=== PATIENT | female | born 1990 | race Caucasian/White ===

== ENCOUNTER 2018-11-17 11:00 | Observation (INO) | payer OTHER ==
[~2018-11-17] VITALS: Ht 160 cm; Wt 55.7 kg
[2018-11-17] MEDS ORDERED: ZOFR4TAB16 PO (11:12)
[2018-11-17] MEDS ORDERED: PRENCHW PO (11:12)
[2018-11-17] MEDS ORDERED: NS 1,000 ML IV ONE (11:15)
[2018-11-17 11:24] LABS: BASO % 0.4 % (0.0-1.0); EOS # 0.1 10^3/uL (0.0-0.50); EOS % 1.1 % (0.0-3.0); HEMOGLOBIN 13.5 g/dl (12.0-15.5); LYMPH # 2.3 10^3/uL (1.5-6.5); LYMPH % 23.8 % (24.0-44.0); MEAN CORPUSCULAR HEMOGLOBIN 31.5 pg (27.0-33.0); MEAN CORPUSCULAR HGB CONC 36.5 g/dl (32.0-36.5); MEAN CORPUSCULAR VOLUME 86.2 fl (80.0-96.0); MONO # 0.4 10^3/uL (0.0-0.8); MONO % 4.3 % (0.0-5.0); NEUTROPHILS # 6.8 10^3/uL (1.8-7.7); PLATELET COUNT, AUTOMATED 291 10^3/uL (150-450); RED BLOOD COUNT 4.29 10^6/uL (4.00-5.40); WHITE BLOOD COUNT 9.7 10^3/uL (4.0-10.0)
--- NOTE | 2018-11-17 11:48 | REP ---
Chest one-view HISTORY: Tachycardia Comparison: None The lungs are clear. The heart is normal in size. The pulmonary vasculature is normal in appearance. Impression: No acute disease. Electronically Signed by Parker Leonard MD 11/17/2018 11:40 A
[2018-11-17 12:05] LABS: ALBUMIN 3.8 GM/DL (3.2-5.2); ALT/SGPT 28 U/L (12-78); BILIRUBIN,DIRECT < 0.1 MG/DL (0.0-0.2); BILIRUBIN,TOTAL 0.3 MG/DL (0.2-1.0); BLOOD UREA NITROGEN 12 MG/DL (7-18); CALCIUM LEVEL 9.1 MG/DL (8.5-10.1); CARBON DIOXIDE LEVEL 22 MEQ/L (21-32); CHLORIDE LEVEL 104 MEQ/L (98-107); CPK CREATINE PHOSPHOKINASE 121 U/L (26-192); CREATININE FOR GFR 0.78 MG/DL (0.55-1.30); GLOMERULAR FILTRATION RATE > 60.0 (>60); GLUCOSE, FASTING 91 MG/DL (70-100); MB/CK RELATIVE INDEX 1.16 (< OR =4); POTASSIUM SERUM 3.3 MEQ/L (3.5-5.1); SODIUM LEVEL 136 MEQ/L (136-145); TROPONIN I < 0.02 NG/ML (< 0.10)
[2018-11-17] MEDS ORDERED: ONDA4TAB6 PO (12:41)
[2018-11-17] MEDS ORDERED: ONDANSETRON 4 MG ORAL DISINTEGRATING TAB (Q0162 PER 1MG) PO PRN (14:00)
[2018-11-17] MEDS ORDERED: POTASSIUM CHLORIDE 10% LIQ 20 MEQ/15 ML UDC PO ONE (14:00)
--- NOTE | 2018-11-17 14:31 | HPE ---
DATE OF ADMISSION: 11/17/2018 This is a 28-year-old female with a past medical history of a pulmonic heart murmur who presents to the emergency room with heart palpitations. She says she had heart palpitations yesterday when she was at the gym and she gave herself a vagal maneuver and her heart rate came down with that maneuver and she went about her day. 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 The patient's 12 lead EKG showed what appeared to be sinus tachycardia at approximately 120 beats per minute. On the tele strips it went as high as 160 but no medical intervention was necessary. 12 lead EKG showed a right bundle branch block, otherwise no acute STT abnormalities and her first troponin was negative. She does have a family history of heart arrhythmias from her father, however this late onset in life and he has paroxysmal atrial fibrillation. No history of early supraventricular arrhythmias. At this time, she is chest pain free. She has no palpitations or shortness of breath. She will be admitted for further management. PAST MEDICAL HISTORY: Pulmonic murmur at age 7. ALLERGIES: No known drug allergies. FAMILY HISTORY: Negative for early supraventricular arrhythmias. SOCIAL HISTORY: Patient denies tobacco, alcohol or illicit drugs. HOME MEDICATIONS: Are as follows: - multivitamin one tablet orally daily - odansetron 40 mg orally every 8 hours as needed REVIEW OF SYSTEMS: Negative in all 10 major systems except what is mentioned in the history of present illness. VITALS: Blood pressure is 157/70, heart rate is 108 and regular, respiratory rate is 18, temperature 99, oxygen saturation is 100% on room air. Head is atraumatic, normocephalic. Neck supple, no jugular venous distention (JVD). Lungs are clear to auscultation. S1 and S2 audible. There is a diastolic murmur appreciated in the left upper sternal border. Abdomen soft, positive bowel sonds. No pedal edema. Skin is intact. Neurologic exam: Patient awake, alert and oriented times three. LABS: Sodium 136, potassium 3.3, chloride 104, CO2 22, anion gap 10, BUN 12, creatinine 0.78, troponin is less than 0.02, TSH 1.66. WBC 9.7, hemoglobin 13.5, hematocrit 37, platelets 291,000. IMPRESSION: 1. Arrhythmia with sinus tachycardia. PLAN: Patient is to be admitted to the PCU. Will get a second troponin to rule out acute coronary syndrome, which I highly doubt is the case. We are going to get an echocardiogram to evaluate this murmur. No need for any antiarrhythmics at this time or rate reducing medications. Will ask Dr. Santos, our fell cutter, to be on consult and will be looking forward to his recommendations. In the ER, heart rate evaluated and found to be normal. The patient is 13 weeks at this time. KEAGAN
[2018-11-17 15:38] LABS: MAGNESIUM LEVEL 2.2 MG/DL (1.8-2.4)
[2018-11-17 17:00] VITALS: BP 129/65
--- NOTE | 2018-11-17 17:24 | ECHO ---
DATE OF PROCEDURE: 11/17/2018 REFERRING PHYSICIAN: Dr. Niko Somers INDICATION: Heart murmur. HEIGHT: 63 inches WEIGHT: 56 kilograms 2D MEASUREMENTS: Aortic annulus: 2.1 cm Left atrium: 2.5 cm Ventricular septum: 0.83 cm Posterior wall: 0.87 cm Left ventricle diastole: 4.1 cm Aortic root: 2.8 cm Left atrial volume index: 23 Inferior vena cava: 1.7 cm with much greater than 50% respiratory variation. Central venous pressure estimated to be approximately 5 mmHg at the time of the study. DOPPLER MEASUREMENTS: Aortic valve velocity: 113 cm/s LVOT velocity: 98.3 cm/s LVOT VTI: 17.0 cm Mitral E velocity: 87.7 cm/s Mitral A velocity: 43.8 cm/s Mitral deceleration time: 190 milliseconds Pulmonary artery systolic pressure estimated to be 17 mmHg. MITRAL ANNULAR TISSUE DOPPLER: E prime septal: 14.7 cm/s E prime lateral: 18.6 cm/s DESCRIPTION: Rhythm ranged from sinus rhythm to mild sinus tachycardia. Image quality was good. This was a 2D, M-mode, color flow Doppler and pulse wave Doppler examination and included mitral annular tissue Doppler. CONCLUSIONS: 1. Normal left ventricle internal dimensions and wall thickness. Normal regional left ventricular (LV) wall motion and wall thickening. Normal LV systolic function. Left ventricular ejection fraction (LVEF) 72% (3D). Supernormal LV diastolic function. 2. Normal echocardiogram Doppler. 3. Central venous pressure estimated to be 5 mmHg at the time of the study. 4. No pericardial effusion.
[2018-11-17] MEDS: NS 1,000 ML IV SCH (18:15)
[2018-11-17 20:00] VITALS: BP 139/67
[2018-11-17] MEDS: PRENATAL VITAMINS CHEWABLE TABLET PO SCH (20:06)
[2018-11-18] VITALS: BP 126/66
[2018-11-18] MEDS: NS 1,000 ML IV SCH (01:30)
[2018-11-18 04:00] VITALS: BP 129/65
[2018-11-18 06:21] LABS: BLOOD UREA NITROGEN 5 MG/DL (7-18); CALCIUM LEVEL 8.7 MG/DL (8.5-10.1); CARBON DIOXIDE LEVEL 22 MEQ/L (21-32); CHLORIDE LEVEL 109 MEQ/L (98-107); CREATININE FOR GFR 0.58 MG/DL (0.55-1.30); GLOMERULAR FILTRATION RATE > 60.0 (>60); GLUCOSE, FASTING 70 MG/DL (70-100); POTASSIUM SERUM 3.8 MEQ/L (3.5-5.1); SODIUM LEVEL 137 MEQ/L (136-145)
[2018-11-18 08:00] VITALS: BP 138/68
[2018-11-18] MEDS: PRENATAL VITAMINS CHEWABLE TABLET PO SCH (09:52)
--- NOTE | 2018-11-18 17:46 | IPNPDOC ---
Text Note Date of Service The patient was seen on 11/18/18. NOTE SUBJECTIVE: No complaints overnight . had an episode of morning sickness. now feeling better wants to go home,Echo normal. PHYSICAL EXAM: VITALS: As below GENERAL: Patient awake alert oriented x 3 lying comfortably in bed in no acute distress. Neck supple, no jugular venous distention (JVD). Lungs are clear to auscultation. CVS: S1 and S2 audible. There is a diastolic murmur appreciated in the left upper sternal border. Abdomen soft, positive bowel sonds. No pedal edema. Skin is intact. Neurologic exam: Patient awake, alert and oriented times three. LABS And Radiology : Reviewed. ASSESSMENT AND PLAN: This is a 28-year-old female with a past medical history of a pulmonic heart murmur who presents to the emergency room with heart palpitations. She says she had heart palpitations yesterday when she was at the gym and she gave herself a vagal maneuver and her heart rate came down with that maneuver and she went about her day. 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 The patient's 12 lead EKG showed what appeared to be sinus tachycardia at approximately 120 beats per minute. On the tele strips it went as high as 160 but no medical intervention was necessary. 12 lead EKG showed a right bundle branch block, otherwise no acute STT abnormalities and her first troponin was negative. She does have a family history of heart arrhythmias from her father, however this late onset in life and he has paroxysmal atrial fibrillation. No history of early supraventricular arrhythmias. She was admitted for obs and to rule out any other cardiac arrhythmia. Sinus tachycardia most probably due to dehydration echo was normal except for low estimated central venous pressure. resolved after IVf. 2 sets of troponin are negative. telemetry no arrhythmia. In the ER, heart rate evaluated and found to be normal. The patient is 13 weeks at this time Disposition: Discharge Home. VS,Roselyn, I+O VS, Ankitbone, I+O Laboratory Tests 11/17/18 11:19 Red Blood Count 4.29, Mean Corpuscular Volume 86.2, Mean Corpuscular Hemoglobin 31.5, Mean Corpuscular Hemoglobin Concent 36.5, Red Cell Distribution Width 12.8, Neutrophils (%) (Auto) 70.0 H, Lymphocytes (%) (Auto) 23.8 L, Monocytes (%) (Auto) 4.3, Eosinophils (%) (Auto) 1.1, Basophils (%) (Auto) 0.4, Neutrophils # (Auto) 6.8, Lymphocytes # (Auto) 2.3, Monocytes # (Auto) 0.4, Eosinophils # (Auto) 0.1, Basophils # (Auto) 0.0 11/18/18 04:40 Calcium Level 8.7 Vital Signs Date Time Temp Pulse Resp B/P (MAP) Pulse Ox O2 Delivery O2 Flow Rate FiO2 11/18/18 00:00 98.3 82 16 126/66 (86) 98 Room Air I&O- Last 24 Hours up to 6 AM 11/18/18 06:00 Intake Total 1000 ml Output Total 500 ml Balance 500 ml CRISTIANO PEGUERO MD Nov 18, 2018 08:01
--- NOTE | 2018-11-19 06:40 | ECGEPIP ---
Stationary ECG Study [facility] - ED Test Date: 2018-11-17 Pat Name: SHANA MEJIA Department: Room: - Gender: F Auto Refinisher: JESSIE : 1990 Requested By: Bulmaro Newell Order Number: [id number] Reading MD: Bulmaro Newell Measurements Intervals [place] Rate: 127 P: 72 OK: 150 QRS: 219 QRSD: 102 T: 10 QT: 293 QTc: 426 Interpretive Statements SINUS TACHYCARDIA INDETERMINATE AXIS PATTERN CONSISTENT WITH PULMONARY DISEASE INCOMPLETE RIGHT BUNDLE BRANCH BLOCK POSSIBLE RIGHT VENTRICULAR HYPERTROPHY NONSPECIFIC ST T WAVE CHANGES NO OLD ECG FOR COMPARISON Electronically Signed On 11-19-2018 6:39:58 EST by Bulmaro Newell
== END 2018-11-18 14:00 | disposition home or self-care (01) ==
LOC: M ED 11:00 → M ED INP 13:47 → M PCU 17:00
PROVIDERS: ADMIT Internal Medicine; ATTEND Internal Medicine Nephrology
DX: O99.411 Diseases of the circulatory system complicating pregnancy, first trimester (principal); R00.0 Tachycardia, unspecified; I49.9 Cardiac arrhythmia, unspecified; Z3A.13 13 weeks gestation of pregnancy
CPT/HCPCS: 36415; 71045; 80048; 80076; 82550; 82553; 83735; 84439; 84443; 84484; 85025; 93005; 93041; 93306; 94760; 96360; 99285; Q0162